=== PATIENT | male | born 1970 | race Caucasian/White ===

== ENCOUNTER 2021-09-19 09:23 | Inpatient (IN) | payer SELFPAY ==
[~2021-09-19] VITALS: Ht 182.8 cm; Wt 74.4 kg
[~2021-09-19 09:23] MED LIST: ATOR20TA66 PO; DULA0.75 SQ; EMPA25TA PO; INSN1U SQ; INSU100V31 SC
[2021-09-19] MEDS ORDERED: ONDANSETRON 4 MG/2 ML (SDV) Z0FRAN ONE (09:33)
[2021-09-19 09:41] LABS: BASOPHILS # (AUTO) 0.1 10^3/uL (0.0-0.1); BASOPHILS % (AUTO) 1 % (0-10); EOSINOPHILS % (AUTO) 0 % (0-10); HEMATOCRIT 45 % (40-54); HEMOGLOBIN 14.8 g/dL (13.3-17.7); LYMPHOCYTES # (AUTO) 1.1 10^3/uL (1.0-4.0); LYMPHOCYTES % (AUTO) 12 % (12-44); MEAN CORPUSCULAR HEMOGLOBIN 28 pg (25-34); MEAN CORPUSCULAR HGB CONC 33 g/dL (32-36); MEAN CORPUSCULAR VOLUME 85 fL (80-99); MEAN PLATELET VOLUME 10.1 fL (9.0-12.2); MONOCYTES # (AUTO) 0.6 10^3/uL (0.0-1.0); MONOCYTES % (AUTO) 6 % (0-12); NEUTROPHILS # (AUTO) 7.7 10^3/uL (1.8-7.8); NEUTROPHILS % (AUTO) 81 % (42-75); PLATELET COUNT 299 10^3/uL (130-400); WHITE BLOOD COUNT 9.5 10^3/uL (4.3-11.0)
[2021-09-19] MEDS ORDERED: PANTOPRAZOLE 40 MG (PROTONIX) VIAL IV ONE (09:45)
[2021-09-19] MEDS ORDERED: inSUlin (REGULAR) HUMAN 1 UNIT/0.01 ML (CHARGE PER UNIT) IV ONE (09:45)
[2021-09-19] MEDS ORDERED: fentaNYL INJ 100 MCG/2 ML AMP IVP ONE (09:45)
[2021-09-19] MEDS ORDERED: ONDANSETRON 4 MG/2 ML (SDV) Z0FRAN IVP ONE (09:45)
[2021-09-19 09:49] LABS: ALBUMIN 4.5 GM/DL (3.2-4.5); CHLORIDE 95 MMOL/L (98-107); POTASSIUM 5.2 MMOL/L (3.6-5.0); SODIUM 135 MMOL/L (135-145)
[2021-09-19 09:51] LABS: CALCIUM 9.9 MG/DL (8.5-10.1)
[2021-09-19 09:52] LABS: TOTAL PROTEIN 7.9 GM/DL (6.4-8.2)
[2021-09-19 09:53] LABS: CARBON DIOXIDE 10 MMOL/L (21-32)
[2021-09-19 09:54] LABS: BILIRUBIN,TOTAL 0.9 MG/DL (0.1-1.0)
[2021-09-19 09:56] LABS: ALKALINE PHOSPHATASE 126 U/L (40-136); CREATININE SERUM 1.73 MG/DL (0.60-1.30); GFR ESTIMATED 47; GLUCOSE 525 MG/DL (70-105)
[2021-09-19 09:57] LABS: BUN/CREATININE RATIO 14
[2021-09-19 09:58] LABS: SALICYLATE < 5.0 MG/DL (5.0-20.0)
[2021-09-19 09:59] LABS: ALANINE AMINOTRANSFERASE 50 U/L (0-55); MAGNESIUM 2.2 MG/DL (1.6-2.4)
[2021-09-19 10:01] LABS: LIPASE 7 U/L (8-78)
[2021-09-19 10:18] LABS: ACETAMINOPHEN < 10 UG/ML (10-30)
[2021-09-19] MEDS ORDERED: NS IV 1000 ML 1,000 ML IV SCH ×2 (11:00→13:15)
--- NOTE | 2021-09-19 11:29 | ED General ---
General Chief Complaint: Glucose Problems Stated Complaint: HIGH BLOOD SUGAR Nursing Triage Note: PT TO ED PER EMS FROM LOCAL [facility] W/ C/O ELEVATED BLOOD SUGAR, N/V. PT REPORTS HAS NOT TAKEN INSULIN SINCE "MONDAY". WHEN ASKED WHY, PT REPORTS "THAT WAS THE LAST TIME I WAS SOBER." PT ADMITS TO MARIJUANA ET METHAMPHETAMINE USE. ALSO REPORTS DRINKS ETOH "WHEN HE GOES OUT". NO OTHER C/O VOICED. Source of Information: Patient, EMS, Old Records Exam Limitations: No Limitations History of Present Illness Date Seen by Provider: Sep 19, 2021 Time Seen by Provider: 09:24 Initial Comments This 51-year-old man presents to the emergency room with nausea, vomiting, epigastric discomfort, and hyperglycemia. Blood sugar for EMS was 416 with positive ketones. He had an admission for DKA in June. He admits to not using any insulin in about 48 hours. He has been recently using methamphetamines and marijuana. He also admits to drinking alcohol approximately 4 beers per night on average. He is alert and oriented but actively heaving on arrival. Patient states his diabetes is type II, but he has been in DKA previously. His primary care provider is [place] at [facility]. Allergies and Home Medications Allergies Coded Allergies: No Known Drug Allergies (Unverified , 07/24/21) Patient Home Medication List Home Medication List Reviewed: Yes Atorvastatin Calcium (Atorvastatin Calcium) 20 Mg Tablet, 20 MG PO DAILY, (Reported) Entered as Reported by: SKYLER BROOKS on 07/28/21 1040 Insulin NPH Human Isophane (Novolin N) 100 Unit/Ml Vial, 30 UNIT SQ DAILY Prescribed by: JEAN MARIE WHITMORE on 07/28/21 1104 Insulin NPH Human Isophane (Novolin N) 100 Unit/Ml Vial, 20 UNIT SQ HS Prescribed by: JEAN MARIE WHITMORE on 07/28/21 1104 Insulin Regular, Human (Novolin R) 100 Unit/Ml Vial, 6 UNIT SC AC Prescribed by: JEAN MARIE WHITMORE on 07/28/21 1104 Review of Systems Review of Systems Constitutional: no symptoms reported EENTM: no symptoms reported Respiratory: no symptoms reported Cardiovascular: no symptoms reported Gastrointestinal: see HPI Genitourinary: no symptoms reported Musculoskeletal: no symptoms reported Skin: no symptoms reported Psychiatric/Neurological: See HPI Hematologic/Lymphatic: No Symptoms Reported Immunological/Allergic: no symptoms reported Past Pakdpnu-Jqcyff-Fhwnoi Hx Patient Social History Tobacco Use?: No Smokeless Tobacco Frequency: Current Everyday User Use of E-Cig and/or Vaping dev: Yes Use of E-Cig and/or Vaping Manas: Current Everyday User Substance use?: Yes Substance type: Methamphetamine, Marijuana Alcohol Use?: Yes Alcohol type: Beer Alcohol Frequency: Daily Immunizations Up To Date First/Initial COVID19 Vaccinat: FEBRUARY 2021 Second COVID19 Vaccination Angel: MAY 2021 Past Medical History Surgery/Hospitalization HX: DIABETIC Surgeries: No Respiratory: No Cardiac: No Neurological: No Genitourinary: No Gastrointestinal: No Musculoskeletal: No Endocrine: Yes Diabetes, Insulin dep HEENT: No Cancer: No Psychosocial: Yes (Polysubstance abuse) Integumentary: No Physical Exam Vital Signs Vital Signs - First Documented 09/19/21 09:26 Temp 36.6 Pulse 112 Resp 20 B/P (MAP) 145/95 (112) Pulse Ox 100 O2 Delivery Room Air Capillary Refill : Less Than 3 Seconds Height, Weight, BMI Height: '" Weight: lbs. oz. kg; 23.00 BMI Method: General Appearance: WD/WN, Mild Distress, Thin HEENT: PERRL/EOMI, TMs Normal, Normal ENT Inspection, Other (Oropharynx somewhat dry) Neck: Normal Inspection; No JVD Respiratory: Lungs Clear, Normal Breath Sounds, No Accessory Muscle Use, No Respiratory Distress Cardiovascular: No Edema, No Murmur, Tachycardia Gastrointestinal: Normal Bowel Sounds, Soft; No Distended; Tenderness (Epigastrium) Extremity: Normal Inspection, No Pedal Edema Neurologic/Psychiatric: Alert, Oriented x3, No Motor/Sensory Deficits, Normal Mood/Affect, public opinion survey taker II-XII Norm as Tested, Other (Dystonic movements consistent with influence of methamphetamines) Skin: Normal Color, Warm/Dry Progress/Results/Core Measures Suspected Sepsis SIRS Temperature: Pulse: 112 Respiratory Rate: 20 Laboratory Tests 09/19/21 09:29: White Blood Count 9.5 Blood Pressure 145 /95 Mean: 112 Laboratory Tests 09/19/21 09:29: Creatinine 1.73H, Platelet Count 299, Total Bilirubin 0.9 Results/Orders Lab Results Laboratory Tests Test 09/19/21 09:29 09/19/21 09:32 Range/Units White Blood Count 9.5 4.3-11.0 10^3/uL Red Blood Count 5.35 4.30-5.52 10^6/uL Hemoglobin 14.8 13.3-17.7 g/dL Hematocrit 45 40-54 % Mean Corpuscular Volume 85 80-99 fL Mean Corpuscular Hemoglobin 28 25-34 pg Mean Corpuscular Hemoglobin Concent 33 32-36 g/dL Red Cell Distribution Width 13.6 10.0-14.5 % Platelet Count 299 130-400 10^3/uL Mean Platelet Volume 10.1 9.0-12.2 fL Immature Granulocyte % (Auto) 0 % Neutrophils (%) (Auto) 81 H 42-75 % Lymphocytes (%) (Auto) 12 12-44 % Monocytes (%) (Auto) 6 0-12 % Eosinophils (%) (Auto) 0 0-10 % Basophils (%) (Auto) 1 0-10 % Neutrophils # (Auto) 7.7 1.8-7.8 10^3/uL Lymphocytes # (Auto) 1.1 1.0-4.0 10^3/uL Monocytes # (Auto) 0.6 0.0-1.0 10^3/uL Eosinophils # (Auto) 0.0 0.0-0.3 10^3/uL Basophils # (Auto) 0.1 0.0-0.1 10^3/uL Immature Granulocyte # (Auto) 0.0 0.0-0.1 10^3/uL Sodium Level 135 135-145 MMOL/L Potassium Level 5.2 H 3.6-5.0 MMOL/L Chloride Level 95 L 98-107 MMOL/L Carbon Dioxide Level 10 L 21-32 MMOL/L Anion Gap 30 H 5-14 MMOL/L Blood Urea Nitrogen 25 H 7-18 MG/DL Creatinine 1.73 H 0.60-1.30 MG/DL Estimat Glomerular Filtration Rate 47 BUN/Creatinine Ratio 14 Glucose Level 525 *H 70-105 MG/DL Calcium Level 9.9 8.5-10.1 MG/DL Corrected Calcium 9.5 8.5-10.1 MG/DL Magnesium Level 2.2 1.6-2.4 MG/DL Total Bilirubin 0.9 0.1-1.0 MG/DL Aspartate Amino Transf (AST/SGOT) 42 H 5-34 U/L Alanine Aminotransferase (ALT/SGPT) 50 0-55 U/L Alkaline Phosphatase 126 40-136 U/L Total Protein 7.9 6.4-8.2 GM/DL Albumin 4.5 3.2-4.5 GM/DL Lipase 7 L 8-78 U/L Salicylates Level < 5.0 L 5.0-20.0 MG/DL Acetaminophen Level < 10 L 10-30 UG/ML Serum Alcohol < 10 <10 MG/DL Glucometer 494 *H 70-110 MG/DL My Orders Orders - KODY RANDHAWA MD Ondansetron Injection (Zofran Injectio (09/19/21 09:45) Pantoprazole Injection (Protonix Injecti (09/19/21 09:45) Insulin (Regular) Human (Novolin R (Per (09/19/21 09:45) Ondansetron Injection (Zofran Injectio (09/19/21 09:33) Acetaminophen (09/19/21 09:36) Alcohol (09/19/21 09:36) Cbc With Automated Diff (09/19/21 09:36) Comprehensive Metabolic Panel (09/19/21 09:36) Drug Screen Stat (Urine) (09/19/21 09:36) Lipase (09/19/21 09:36) Magnesium (09/19/21 09:36) Salicylate (09/19/21 09:36) Ua Culture If Indicated (09/19/21 09:36) Monitor-Rhythm Ecg Trace Only (09/19/21 09:36) Fentanyl Inj (Sublimaze Injection) (09/19/21 09:45) Ns Iv 1000 Ml (Sodium Chloride 0.9%) (09/19/21 11:00) Accucheck Stat ONCE (09/19/21 10:51) Code/Resuscitation (09/19/21 11:42) Medications Given in ED Current Medications Medications Dose Ordered Sig/Carlos Route Start Time Stop Time Status Last Admin Dose Admin Fentanyl Citrate 50 mcg ONCE ONCE IVP 09/19/21 09:45 09/19/21 09:46 DC 09/19/21 09:43 50 MCG Insulin Human Regular 5 unit ONCE ONCE IV 09/19/21 09:45 09/19/21 09:46 DC 09/19/21 09:43 5 UNIT Ondansetron HCl 8 mg ONCE ONCE IVP 09/19/21 09:45 09/19/21 09:46 DC 09/19/21 09:36 8 MG Pantoprazole 40 mg ONCE ONCE IV 09/19/21 09:45 09/19/21 09:46 DC 09/19/21 09:44 40 MG Vital Signs/I&O 09/19/21 09:26 Temp 36.6 Pulse 112 Resp 20 B/P (MAP) 145/95 (112) Pulse Ox 100 O2 Delivery Room Air Capillary Refill : Less Than 3 Seconds Blood Pressure Mean: 112 Progress Note #1: Time: 11:45 Progress Note Patient received 2 L of IV normal saline. 5 units of IV insulin was also administered with improvement in his blood sugars. GI symptoms were treated with Zofran 8 mg and Protonix 40 mg. Patient had good improvement in his symptoms and was resting peacefully on repeat assessment. I discussed CODE STATUS with the patient twice and reviewed scenarios in which resuscitation or intubation may be necessary. During both discussions he asserts a DO NOT RESUSCITATE request. Progress Note #2: Time: 11:58 Progress Note Report given to eICU provider. Report given to Dr. Whitmore who has cued orders. Departure Communication (Admissions) Time/Spoke to Admitting Phy: 11:42 Dr. Whitmore Impression Primary Impression: Diabetic ketoacidosis Qualified Codes: E11.10 - Type 2 diabetes mellitus with ketoacidosis without coma Additional Impressions: Polysubstance abuse Acute kidney injury Nausea & vomiting Qualified Codes: R11.2 - Nausea with vomiting, unspecified Disposition: ADMITTED INPATIENT Condition: Improved Admissions Decision to Admit Reason: Admit from ER (General) Decision to Admit/Date: Sep 19, 2021 Time/Decision to Admit Time: 11:42 Departure-Patient Inst. Referrals: [facility] (PCP/Family) Primary Care Physician KODY RANDHAWA MD Sep 19, 2021 11:29
--- NOTE | 2021-09-19 11:56 | History & Physical-Hospitalist ---
History of Present Illness HPI/Chief Complaint CC: DKA HPI: This is a 51yo male who presented to the ER with N/V and found to have DKA. No pain reported. Source: patient, old records Exam Limitations: no limitations Date Seen 09/19/21 Time Seen by a Provider: 12:30 [facility] Admitting Physician: Attending Physician: Referring Physician Date of Admission Home Medications & Allergies Home Medications Reviewed patient Home Medication Reconciliation performed by pharmacy medication reconciliations preparatory technician and/or nursing. Patients Allergies have been reviewed. Allergies Allergies Coded Allergies No Known Drug Allergies (Unverified07/24/21) Past Gognawx-Majatc-Daesyu Hx Patient Social History Marrital Status: single Employed/Student: unemployed Tobacco Use?: No Smokeless type used: Chew Smokeless Tobacco Frequency: Current Everyday User Use of E-Cig and/or Vaping dev: Yes Use of E-Cig and/or Vaping Manas: Current Everyday User Substance use?: Yes Substance type: Methamphetamine, Marijuana Alcohol Use?: Yes Alcohol type: Beer Alcohol Frequency: Daily Immunizations Up To Date First/Initial COVID19 Vaccinat: FEBRUARY 2021 Second COVID19 Vaccination Angel: MAY 2021 Current Status Advance Directives: No Communicates: Verbally Primary Language: Thai Preferred Spoken Language: Thai Is interpretation needed?: No Past Medical History Diabetes, Insulin dep Review of Systems Constitutional: see HPI, malaise, weakness Gastrointestinal: nausea, vomiting Physical Exam Physical Exam Vital Signs Vital Signs - First Documented 09/19/21 09:26 Temp 36.6 Pulse 112 Resp 20 B/P (MAP) 145/95 (112) Pulse Ox 100 O2 Delivery Room Air Capillary Refill : Less Than 3 Seconds Height, Weight, BMI Height: '" Weight: lbs. oz. kg; 23.00 BMI Method: General Appearance: Anxious, Mild Distress Eyes: Right Eye Normal Inspection, Right Eye PERRL HEENT: PERRL/EOMI, TMs Normal, Normal ENT Inspection, Pharynx Normal, Moist Mucous Membranes Neck: Full Range of Motion, Normal Inspection, Non Tender Respiratory: Chest Non Tender, Lungs Clear, Normal Breath Sounds, No Accessory Muscle Use, No Respiratory Distress Cardiovascular: Regular Rate, Rhythm, No Edema, No Gallop, No JVD, No Murmur, Normal Peripheral Pulses Gastrointestinal: Normal Bowel Sounds, No Organomegaly, No Pulsatile Mass, Non Tender, Soft Back: Normal Inspection, No CVA Tenderness, No Vertebral Tenderness Extremity: Normal Capillary Refill, Normal Inspection, Normal Range of Motion, Non Tender, No Calf Tenderness, No Pedal Edema Neurologic/Psychiatric: Alert, Oriented x3, No Motor/Sensory Deficits, Normal Mood/Affect Skin: Normal Color, Warm/Dry Lymphatic: No Adenopathy Results Results/Procedures Labs Laboratory Tests 09/19/21 09:29 09/19/21 14:29 09/19/21 16:42 Patient resulted labs reviewed. Assessment/Plan Admission Diagnosis DKA BRYON Insulin drip Admission Status: Inpatient Order (span 2 midnights) Reason for Inpatient Admission: dka Diagnosis/Problems Diagnosis/Problems (1) Diabetic ketoacidosis Status: Acute Qualifiers: Diabetes mellitus type: type 2 Diabetes mellitus complication detail: without coma Qualified Codes: E11.10 - Type 2 diabetes mellitus with ketoacidosis without coma JEAN MARIE WHITMORE DO Sep 19, 2021 11:56
[2021-09-19] MEDS ORDERED: DIAZEPAM INJ 10 MG/2 ML (VALIUM) SYR IVP PRN (13:15)
[2021-09-19] MEDS ORDERED: diphenhydrAMINE 50 MG/ML INJ (BENADRYL) IVP PRN (13:15)
[2021-09-19] MEDS ORDERED: ONDANSETRON 4 MG (ZOFRAN) ORAL DISSOLVE TAB PO PRN (13:15)
[2021-09-19] MEDS ORDERED: diphenhydrAMINE 25 MG TAB (BENADRYL) PO PRN (13:15)
[2021-09-19] MEDS ORDERED: LORazepam 1 MG (ATIVAN) TAB PO PRN (13:15)
[2021-09-19] MEDS ORDERED: morphine INJ 4 MG/ML 1 ML (VIAL/SYRINGE) IV PRN (13:15)
[2021-09-19] MEDS ORDERED: MILK OF MAGNESIA 400 MG/5 ML 30 ML UDC PO PRN (13:15)
[2021-09-19] MEDS ORDERED: ONDANSETRON 4 MG (ZOFRAN) ORAL DISSOLVE TAB SL PRN (13:15)
[2021-09-19] MEDS ORDERED: MELATONIN 3 MG TABLET PO PRN (13:15)
[2021-09-19] MEDS ORDERED: ANTACID SUSP 30 ML UDC (MYLANTA) PO PRN ×2 (13:15)
[2021-09-19] MEDS ORDERED: ACETAMINOPHEN 325 MG TABLET PO PRN (13:15)
[2021-09-19] MEDS ORDERED: polyethylene glycoL POWDER 17 GM (MIRALAX) PACK PO PRN (13:15)
[2021-09-19] MEDS ORDERED: ALPRAZolam 0.5 MG (XANAX) TAB PO PRN (13:15)
[2021-09-19] MEDS ORDERED: SENNA W/DOCUSATE (SENOKOT S) TABLET PO PRN (13:15)
[2021-09-19] MEDS ORDERED: CALCIUM CARBONATE 500 MG (TUMS) TAB.CHEW PO PRN (13:15)
[2021-09-19] MEDS ORDERED: BISACODYL 10 MG SUPP (DULCOLAX) PR PRN (13:15)
[2021-09-19] MEDS ORDERED: LACTULOSE SYRUP 10GM/15ML (ENULOSE) 30ML UDC PO PRN (13:15)
[2021-09-19] MEDS ORDERED: ONDANSETRON 4 MG/2 ML (SDV) Z0FRAN IV PRN ×2 (13:15)
[2021-09-19 13:38] VITALS: BP 145/95
[2021-09-19] MEDS ORDERED: RT-ALBUTEROL SULF 2.5 MG/3 ML PRE-MIX VIAL INH PRN (13:45)
[2021-09-19] MEDS: 1/2 NS IV SOLUTION 1,000 ML IV SCH ×3 (13:49→19:46)
[2021-09-19] MEDS: POTASSIUM CL 10MEQ/50ML IVPB 50 ML IV SCH ×9 (13:49→22:27)
[2021-09-19] MEDS: ENOXAPARIN 40 MG/0.4 ML (LOVENOX) SYR SC SCH (14:16)
--- NOTE | 2021-09-19 14:18 | Tele-ICU Progress Note ---
Subjective Date Seen by a Provider: Sep 19, 2021 Time Seen by a Provider: 14:18 Subjective/Events-last exam Discussion with the RN, exam as per RN. HPI He is a 51-year-old male with past medical history of type 2 diabetes mellitus on insulin has been noncompliant with his insulin. Also apparently he was using methamphetamine and marijuana until recently. Now presented with the nausea vomiting abdominal pain and patient noted that he has a hyperglycemia. In the emergency room he is found to have a diabetic ketoacidosis with hyperglycemia. Also his BUN/creatinine elevated suggestive of acute kidney injury. Hence he is being admitted to the ICU for close monitoring and management of his DKA. I have reviewed the case with emergency room physician as well as the intensive care nurse. Currently he denies any abdominal pain after initial treatment. He has some mild nausea. Denies any fever or chills chills, no chest pain. No telemetry ICU consult requested but evaluating the patient for telemetry ICU pro tocol. Review of Systems ROS PER RN Sepsis Event Evaluation Height, Weight, BMI Height: '" Weight: lbs. oz. kg; 21.69 BMI Method: Exam Exam Patient acknowledged, consented, and participated in this virtual visit which was conducted using real time audio/video Vital Signs Date Time Temp Pulse Resp B/P (MAP) Pulse Ox O2 Delivery O2 Flow Rate FiO2 09/19/21 14:00 101 22 131/93 100 Room Air 09/19/21 13:38 36.6 112 100 09/19/21 09:26 36.6 112 20 145/95 (112) 100 Room Air Height & Weight Height: '" Weight: lbs. oz. kg; 21.69 BMI Method: General Appearance: WD/WN, Mild Distress, Thin HEENT: PERRL/EOMI, TMs Normal, Normal ENT Inspection, Other (Oropharynx somewhat dry) Neck: Normal Inspection; No JVD Respiratory: Lungs Clear, Normal Breath Sounds, No Accessory Muscle Use, No Respiratory Distress Cardiovascular: No Edema, No Murmur, Tachycardia Capillary Refill: Less Than 3 Seconds Extremity: Normal Inspection, No Pedal Edema Neurologic/Psychiatric: Alert, Oriented x3, No Motor/Sensory Deficits, Normal Mood/Affect, eating disorder psychologist II-XII Norm as Tested, Other (Dystonic movements consistent with influence of methamphetamines) Skin: Normal Color, Warm/Dry Other comments PE PER RN Results Lab Laboratory Tests 09/19/21 09:29 Assessment/Plan Assessment/Plan 1. Diabetic ketoacidosis due to noncompliance of the medications. 2. Acute kidney injury due to volume loss 3. History of marijuana and methamphetamine abuse. Recommendations 1. Hydrate patient per DKA protocol 2. Agree with IV insulin. 3. Frequent monitoring of electrolytes, magnesium and phosphate. 4. Zofran for nausea and vomiting 5. DVT prophylaxis and ulcer prophylaxis. 6. Video visit made and discussed with the patient and ICU nurse Critical Care: Critically Ill Patient Time spent with patient (mins): 25 DYLLAN JORDAN MD Sep 19, 2021 14:18
[2021-09-19 15:09] LABS: CALCIUM 8.7 MG/DL (8.5-10.1); CREATININE SERUM 1.35 MG/DL (0.60-1.30); MAGNESIUM 1.9 MG/DL (1.6-2.4); PHOSPHORUS 3.3 MG/DL (2.3-4.7); POTASSIUM 4.7 MMOL/L (3.6-5.0)
[2021-09-19 15:16] LABS: BILIRUBIN,URINE NEGATIVE (NEGATIVE); CLARITY,URINE CLEAR; COLOR,URINE YELLOW; GLUCOSE, URINE (UA) 2+ (NEGATIVE); KETONES,URINE 3+ (NEGATIVE); LEUKOCYTE ESTERASE ,URINE NEGATIVE (NEGATIVE); NITRITE,URINE NEGATIVE (NEGATIVE); PROTEIN,URINE NEGATIVE (NEGATIVE)
[2021-09-19 15:27] LABS: AMPHETAMINE SCREEN, URINE POSITIVE (NEGATIVE); BACTERIA,URINE NEGATIVE /HPF; BARBITURATE SCREEN URINE NEGATIVE (NEGATIVE); BENZODIAZEPINES SCREEN URINE NEGATIVE (NEGATIVE); CANNABINOID SCREEN, URINE POSITIVE (NEGATIVE); COCAINE SCREEN URINE NEGATIVE (NEGATIVE); METHADONE STAT NEGATIVE (NEGATIVE); OPIATE SCREEN URINE NEGATIVE (NEGATIVE); OXYCODONE STAT NEGATIVE (NEGATIVE); PROPOXYPHENE STAT NEGATIVE (NEGATIVE); TRICYCLIC ANTIDEPRESSANTS SCRE NEGATIVE (NEGATIVE); WBC,URINE 0-2 /HPF
[2021-09-19] MEDS ORDERED: SODIUM BICARB 8.4% 50 MEQ/50 ML (ABBOTT) SYR IV ONE ×2 (15:30)
[2021-09-19 15:45] LABS: ABG BASE EXCESS -13.3 MMOL/L (-2.5-2.5); ABG OXYGEN SATURATION 99 % (94-100); ABG PCO2 24 MMHG (35-45); ABG PO2 132 MMHG (79-93); ABG TCO2 12.4 MMOL/L (21.0-31.0)
[2021-09-19 15:49] LABS: ABG PH 7.32 (7.37-7.43)
[2021-09-19 15:50] LABS: ALLENS TEST YES-POS; PATIENT TEMP 37.1; VENTILATOR NO
[2021-09-19 17:05] LABS: CALCIUM 8.1 MG/DL (8.5-10.1); CREATININE SERUM 1.17 MG/DL (0.60-1.30); POTASSIUM 4.3 MMOL/L (3.6-5.0)
[2021-09-19] MEDS: D5 1/2 NS 1000 ML IV SOLUTION 1,000 ML IV SCH ×2 (18:05→22:27)
[2021-09-19] MEDS: DOCUSATE SODIUM 100 MG (COLACE) CAP PO SCH (19:46)
[2021-09-19] MEDS: SENNOSIDES 8.6 MG (SENOKOT) TAB PO SCH (19:46)
[2021-09-19] MEDS: FAMOTIDINE 20MG/2ML IV (PEPCID) IVP SCH (19:46)
[2021-09-19 21:13] LABS: CALCIUM 7.8 MG/DL (8.5-10.1)
[2021-09-19 21:17] LABS: CREATININE SERUM 0.96 MG/DL (0.60-1.30)
[2021-09-20 05:39] LABS: BASOPHILS # (AUTO) 0.1 10^3/uL (0.0-0.1); BASOPHILS % (AUTO) 1 % (0-10); EOSINOPHILS # (AUTO) 0.2 10^3/uL (0.0-0.3); EOSINOPHILS % (AUTO) 3 % (0-10); HEMATOCRIT 38 % (40-54); HEMOGLOBIN 12.6 g/dL (13.3-17.7); LYMPHOCYTES # (AUTO) 2.7 10^3/uL (1.0-4.0); LYMPHOCYTES % (AUTO) 32 % (12-44); MEAN CORPUSCULAR HEMOGLOBIN 28 pg (25-34); MEAN CORPUSCULAR HGB CONC 33 g/dL (32-36); MEAN CORPUSCULAR VOLUME 85 fL (80-99); MEAN PLATELET VOLUME 9.9 fL (9.0-12.2); MONOCYTES # (AUTO) 0.6 10^3/uL (0.0-1.0); MONOCYTES % (AUTO) 7 % (0-12); NEUTROPHILS # (AUTO) 4.8 10^3/uL (1.8-7.8); NEUTROPHILS % (AUTO) 58 % (42-75); PLATELET COUNT 235 10^3/uL (130-400); WHITE BLOOD COUNT 8.3 10^3/uL (4.3-11.0)
[2021-09-20 06:08] LABS: ALBUMIN 3.2 GM/DL (3.2-4.5); POTASSIUM 4.2 MMOL/L (3.6-5.0)
[2021-09-20 06:09] LABS: CALCIUM 8.1 MG/DL (8.5-10.1)
[2021-09-20 06:10] LABS: TOTAL PROTEIN 5.6 GM/DL (6.4-8.2)
[2021-09-20 06:12] LABS: BILIRUBIN,TOTAL 0.8 MG/DL (0.1-1.0)
[2021-09-20 06:14] LABS: CREATININE SERUM 0.79 MG/DL (0.60-1.30); PHOSPHORUS 1.9 MG/DL (2.3-4.7)
--- NOTE | 2021-09-20 06:14 | Progress Note - Hospitalist ---
Subjective HPI/CC On Admission Date Seen by Provider: Sep 20, 2021 Time Seen by Provider: 09:00 CC: DKA HPI: This is a 51yo male who presented to the ER with N/V and found to have DKA. No pain reported. Subjective/Events-last exam Patient doing a lot better Bicarb 16 Not eating or drinking anything No pain is reported Sleeps most of the time Review of Systems General: Fatigue, Malaise Objective Exam Vital Signs Vital Signs Date Time Temp Pulse Resp B/P (MAP) Pulse Ox O2 Delivery O2 Flow Rate FiO2 09/20/21 20:00 36.2 09/20/21 18:13 76 21 169/97 100 Room Air Capillary Refill : Less Than 3 Seconds General Appearance: No Apparent Distress, WD/WN, Chronically ill, Thin Respiratory: Lungs Clear, Normal Breath Sounds Cardiovascular: Regular Rate, Rhythm Neurologic/Psychiatric: Alert, Oriented x3, No Motor/Sensory Deficits, Normal Mood/Affect Results/Procedures Lab Laboratory Tests 09/20/21 05:04 09/20/21 13:15 09/20/21 16:25 09/20/21 18:15 Patient resulted labs reviewed. Assessment/Plan Assessment and Plan Assess & Plan/Chief Complaint Assessment: DKA BRYON Plan: Insulin drip Critical Care Critically Ill Patient Diagnosis/Problems Diagnosis/Problems (1) Diabetic ketoacidosis Status: Acute Qualifiers: Diabetes mellitus type: type 2 Diabetes mellitus complication detail: without coma Qualified Codes: E11.10 - Type 2 diabetes mellitus with ket oacidosis without coma JEAN MARIE WHITMORE DO Sep 20, 2021 06:14
[2021-09-20 06:17] LABS: MAGNESIUM 1.9 MG/DL (1.6-2.4)
[2021-09-20] MEDS: inSUlin ASPART (NovoLOG) 1 UNIT/0.01 ML (CHARGE PER UNIT) SC SCH ×4 (06:26→19:37)
[2021-09-20] MEDS ORDERED: DEXTROSE 50% 50 ML (IMS) SYR IV ONE ×2 (06:45)
[2021-09-20] MEDS: DOCUSATE SODIUM 100 MG (COLACE) CAP PO SCH ×2 (07:37→19:38)
[2021-09-20] MEDS: SENNOSIDES 8.6 MG (SENOKOT) TAB PO SCH ×2 (07:37→19:39)
[2021-09-20] MEDS: FAMOTIDINE 20MG/2ML IV (PEPCID) IVP SCH ×2 (07:37→19:56)
[2021-09-20] MEDS ORDERED: HUM100VI15 SQ ×2 (12:40)
[2021-09-20] MEDS ORDERED: INSU100V31 SC (12:40)
[2021-09-20 13:53] LABS: POTASSIUM 4.2 MMOL/L (3.6-5.0)
[2021-09-20 13:54] LABS: CALCIUM 8.3 MG/DL (8.5-10.1)
[2021-09-20 13:58] LABS: CREATININE SERUM 0.8 MG/DL (0.60-1.30)
[2021-09-20] MEDS: ENOXAPARIN 40 MG/0.4 ML (LOVENOX) SYR SC SCH (15:00)
[2021-09-20] MEDS ORDERED: NS IV 1000 ML 1,000 ML IV SCH (16:45)
[2021-09-20 16:51] LABS: POTASSIUM 4.4 MMOL/L (3.6-5.0)
[2021-09-20 16:52] LABS: CALCIUM 8.3 MG/DL (8.5-10.1)
[2021-09-20 16:57] LABS: CREATININE SERUM 0.91 MG/DL (0.60-1.30)
[2021-09-20 18:36] LABS: POTASSIUM 4.3 MMOL/L (3.6-5.0)
[2021-09-20 18:37] LABS: CALCIUM 8.4 MG/DL (8.5-10.1)
[2021-09-20 18:41] LABS: CREATININE SERUM 0.99 MG/DL (0.60-1.30)
[2021-09-20] MEDS: 1/2 NS IV SOLUTION 1,000 ML IV SCH (20:33)
[2021-09-20] MEDS: D5 1/2 NS 1000 ML IV SOLUTION 1,000 ML IV SCH (22:03)
[2021-09-20] MEDS: POTASSIUM CL 10MEQ/50ML IVPB 50 ML IV SCH ×2 (22:10→23:58)
[2021-09-21 00:52] LABS: POTASSIUM 3.8 MMOL/L (3.6-5.0)
[2021-09-21 00:53] LABS: CALCIUM 8.1 MG/DL (8.5-10.1)
[2021-09-21 00:57] LABS: CREATININE SERUM 0.77 MG/DL (0.60-1.30)
[2021-09-21] MEDS: D5 1/2 NS 1000 ML IV SOLUTION 1,000 ML IV SCH ×2 (02:23→06:23)
[2021-09-21] MEDS: POTASSIUM CL 10MEQ/50ML IVPB 50 ML IV SCH ×3 (02:23→06:22)
[2021-09-21] MEDS: inSUlin ASPART (NovoLOG) 1 UNIT/0.01 ML (CHARGE PER UNIT) SC SCH (05:03)
[2021-09-21 05:16] LABS: BASOPHILS % (AUTO) 0 % (0-10); EOSINOPHILS # (AUTO) 0.2 10^3/uL (0.0-0.3); EOSINOPHILS % (AUTO) 3 % (0-10); HEMATOCRIT 38 % (40-54); HEMOGLOBIN 12.6 g/dL (13.3-17.7); LYMPHOCYTES # (AUTO) 1.6 10^3/uL (1.0-4.0); LYMPHOCYTES % (AUTO) 31 % (12-44); MEAN CORPUSCULAR HEMOGLOBIN 28 pg (25-34); MEAN CORPUSCULAR HGB CONC 33 g/dL (32-36); MEAN CORPUSCULAR VOLUME 85 fL (80-99); MEAN PLATELET VOLUME 10.1 fL (9.0-12.2); MONOCYTES # (AUTO) 0.4 10^3/uL (0.0-1.0); MONOCYTES % (AUTO) 7 % (0-12); NEUTROPHILS % (AUTO) 58 % (42-75); PLATELET COUNT 188 10^3/uL (130-400); WHITE BLOOD COUNT 5.2 10^3/uL (4.3-11.0)
[2021-09-21 05:39] LABS: POTASSIUM 3.7 MMOL/L (3.6-5.0)
[2021-09-21 05:40] LABS: CALCIUM 8.2 MG/DL (8.5-10.1)
[2021-09-21 05:41] LABS: TOTAL PROTEIN 5.4 GM/DL (6.4-8.2)
[2021-09-21 05:43] LABS: BILIRUBIN,TOTAL 0.7 MG/DL (0.1-1.0)
[2021-09-21 05:45] LABS: CREATININE SERUM 0.72 MG/DL (0.60-1.30)
--- NOTE | 2021-09-21 06:03 | Progress Note - Hospitalist ---
Subjective HPI/CC On Admission Date Seen by Provider: Sep 21, 2021 Time Seen by Provider: 09:00 CC: DKA HPI: This is a 51yo male who presented to the ER with N/V and found to have DKA. No pain reported. Objective Exam Vital Signs Vital Signs Date Time Temp Pulse Resp B/P (MAP) Pulse Ox O2 Delivery O2 Flow Rate FiO2 09/21/21 10:00 74 20 136/77 96 Room Air 09/21/21 08:00 36.5 Capillary Refill : Less Than 3 Seconds Results/Procedures Lab Laboratory Tests 09/21/21 00:36 09/21/21 04:09 09/21/21 08:51 Patient resulted labs reviewed. Assessment/Plan Assessment and Plan Assess & Plan/Chief Complaint Assessment: DKA BRYON Plan: Insulin drip Critical Care Critically Ill Patient Diagnosis/Problems Diagnosis/Problems (1) Diabetic ketoacidosis Status: Acute Qualifiers: Diabetes mellitus type: type 2 Diabetes mellitus complication detail: without coma Qualified Codes: E11.10 - Type 2 diabetes mellitus with ketoacidosis without coma JEAN MARIE WHITMORE DO Sep 21, 2021 06:03
[2021-09-21] MEDS: FAMOTIDINE 20MG/2ML IV (PEPCID) IVP SCH (08:15)
[2021-09-21] MEDS: SENNOSIDES 8.6 MG (SENOKOT) TAB PO SCH (08:15)
[2021-09-21] MEDS: DOCUSATE SODIUM 100 MG (COLACE) CAP PO SCH (08:15)
--- NOTE | 2021-09-21 08:30 | Discharge Summary ---
Discharge Summary Hospital Course Was the Problem List Reviewed?: Yes Problems/Dx: (1) Diabetic ketoacidosis Status: Acute Qualifiers: Qualified Codes: E11.10 - Type 2 diabetes mellitus with ketoacidosis without coma Hospital Course Date of Admission: Sep 19, 2021 at 12:59 Admission Diagnosis : [facility] [place] Date of [facility]: 09/21/21 Discharge Diagnosis: dka bryon Hospital Course: Hospital course: Patient had uneventful 3-day hospital course after he was admitted for DKA placed on insulin drip but then he transition to subcu insulin but he went back into DKA requiring another insulin drip IV fluids and patient was ultimately discharged in improved condition he did not need refills on his insulin he was discharged. Labs and Pending Lab Test: Laboratory Tests 09/20/21 09:00: Glucometer 143H 09/20/21 11:06: Glucometer 151H 09/20/21 13:15: Sodium Level 136, Potassium Level 4.2, Chloride Level 106, Carbon Dioxide Level 18L, Anion Gap 12, Blood Urea Nitrogen 10, Creatinine 0.80, Estimat Glomerular Filtration Rate 107, BUN/Creatinine Ratio 13, Glucose Level 181H, Calcium Level 8.3L, Beta-Hydroxybutyrate (Chem panel) 4.13H 09/20/21 15:52: Glucometer 335H 09/20/21 16:25: Sodium Level 134L, Potassium Level 4.4, Chloride Level 103, Carbon Dioxide Level 18L, Anion Gap 13, Blood Urea Nitrogen 12, Creatinine 0.91, Estimat Glomerular Filtration Rate 102, BUN/Creatinine Ratio 13, Glucose Level 363H, Calcium Level 8.3L, Beta-Hydroxybutyrate (Chem panel) 4.37H 09/20/21 17:38: Glucometer 400*H 09/20/21 18:15: Sodium Level 134L, Potassium Level 4.3, Chloride Level 103, Carbon Dioxide Level 17L, Anion Gap 14, Blood Urea Nitrogen 13, Creatinine 0.99, Estimat Glomerular Filtration Rate 92, BUN/Creatinine Ratio 13, Glucose Level 395H, Calcium Level 8.4L 09/20/21 18:34: Glucometer 368H 09/20/21 19:32: Glucometer 365H 09/20/21 20:24: Glucometer 273H 09/20/21 21:31: Glucometer 214H 09/20/21 22:28: Glucometer 207H 09/20/21 23:22: Glucometer 213H 09/21/21 00:19: Glucometer 219H 09/21/21 00:36: Sodium Level 135, Potassium Level 3.8, Chloride Level 105, Carbon Dioxide Level 21, Anion Gap 9, Blood Urea Nitrogen 10, Creatinine 0.77, Estimat Glomerular Filtration Rate 108, BUN/Creatinine Ratio 13, Glucose Level 224H, Calcium Level 8.1L 09/21/21 01:26: Glucometer 210H 09/21/21 02:21: Glucometer 202H 09/21/21 03:25: Glucometer 181H 09/21/21 04:09: White Blood Count 5.2, Red Blood Count 4.51, Hemoglobin 12.6L, Hematocrit 38L, Mean Corpuscular Volume 85, Mean Corpuscular Hemoglobin 28, Mean Corpuscular Hemoglobin Concent 33, Red Cell Distribution Width 13.8, Platelet Count 188, Mean Platelet Volume 10.1, Immature Granulocyte % (Auto) 0, Neutrophils (%) (Auto) 58, Lymphocytes (%) (Auto) 31, Monocytes (%) (Auto) 7, Eosinophils (%) (Auto) 3, Basophils (%) (Auto) 0, Neutrophils # (Auto) 3.0, Lymphocytes # (Auto) 1.6, Monocytes # (Auto) 0.4, Eosinophils # (Auto) 0.2, Basophils # (Auto) 0.0, Immature Granulocyte # (Auto) 0.0, Sodium Level 137, Potassium Level 3.7, Chlori de Level 107, Carbon Dioxide Level 22, Anion Gap 8, Blood Urea Nitrogen 8, Creatinine 0.72, Estimat Glomerular Filtration Rate 111, BUN/Creatinine Ratio 11, Glucose Level 147H, Calcium Level 8.2L, Corrected Calcium 9.0, Total Bilirubin 0.7, Aspartate Amino Transf (AST/SGOT) 23, Alanine Aminotransferase (ALT/SGPT) 29, Alkaline Phosphatase 76, Total Protein 5.4L, Albumin 3.0L, Beta- Hydroxybutyrate (Chem panel) 0.08 09/21/21 04:21: Glucometer 173H 09/21/21 05:32: Glucometer 147H 09/21/21 06:27: Glucometer 140H Home Meds Active Reported Novolin R (Insulin Regular, Human) 100 Unit/Ml Vial Unit SC AC USES PER SLIDING SCALE Novolin 70-30 100 Unit/ml Vial (Insulin NPH Hum/Reg Insulin Hm) 100 Unit/Ml (70- 30) Vial 20 Unit SQ HS LAST FILLED 07-16-2021 #04/15 DAY SUPPLY Novolin 70-30 100 Unit/ml Vial (Insulin NPH Hum/Reg Insulin Hm) 100 Unit/Ml (70- 30) Vial 30 Unit SQ DAILY LAST FILLED 07-16-2021 #04/15 DAY SUPPLY Assessment/Pt Instructions pcp 1 week Discharge Planning: <30 minutes discharge planning Discharge Instructions Discharge Diet: ADA Diet Discharge Physical Examination Vital Signs Vital Signs Date Time Temp Pulse Resp B/P (MAP) Pulse Ox O2 Delivery O2 Flow Rate FiO2 09/21/21 07:36 Room Air 09/21/21 06:32 69 09/21/21 06:00 21 135/80 96 09/21/21 04:00 36.0 General Appearance: No Apparent Distress, WD/WN, Chronically ill Allergies: Coded Allergies: No Known Drug Allergies (Unverified , 07/24/21) Discharge Summary Date of Admission Sep 19, 2021 at 12:59 Date of Discharge Discharge Date: Sep 21, 2021 Admission Diagnosis DKA BRYON Insulin drip Discharge Diagnosis Assessment: DKA BRYON Plan: Insulin drip (1) Diabetic ketoacidosis Status: Acute Qualifiers: Qualified Codes: E11.10 - Type 2 diabetes mellitus with ketoacidosis without coma JEAN MARIE WHITMORE DO Sep 21, 2021 08:30
[2021-09-21 09:15] LABS: POTASSIUM 3.7 MMOL/L (3.6-5.0)
[2021-09-21 09:16] LABS: CALCIUM 8.3 MG/DL (8.5-10.1)
[2021-09-21 09:20] LABS: CREATININE SERUM 0.71 MG/DL (0.60-1.30)
== END 2021-09-21 11:11 | disposition home or self-care (01) | DRG 638 ==
LOC: EDUNIT# 09:23 → ER 09:24 → ICU 12:59
PROVIDERS: ADMIT Internal Medicine; ATTEND Internal Medicine
DX: E11.10 Type 2 diabetes mellitus with ketoacidosis without coma (principal); N17.9 Acute kidney failure, unspecified; Z79.4 Long term (current) use of insulin; F15.90 Other stimulant use, unspecified, uncomplicated; F12.90 Cannabis use, unspecified, uncomplicated; F17.220 Nicotine dependence, chewing tobacco, uncomplicated; F17.290 Nicotine dependence, other tobacco product, uncomplicated; T38.3X6A Underdosing of insulin and oral hypoglycemic [antidiabetic] drugs, initial encounter; Z91.128 Patient's intentional underdosing of medication regimen for other reason
CPT/HCPCS: 36415; 80048; 80053; 80306; 80320; 80329; 81000; 82010; 82805; 82947; 83036; 83690; 83735; 84100; 85025; 87081; 93041; 96361; 96374; 96375

== ENCOUNTER 2022-01-14 19:03 | Inpatient (IN) | payer OTHER ==
[~2022-01-14] VITALS: Ht 183 cm; Wt 66.9 kg
[~2022-01-14 19:03] MED LIST changes: +HUM100VI15 SQ
--- NOTE | 2022-01-14 19:27 | ED General ---
General Stated Complaint: HIGH BLOOD SUGAR/VOMITING Source of Information: Patient, Police Exam Limitations: No Limitations History of Present Illness Date Seen by Provider: Jan 14, 2022 Time Seen by Provider: 19:20 Initial Comments Patient is a 51 yo M with a PMH of IDDM who presents to the ED with nausea/vomiting and hyperglycemia. 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 Reportedly he has been refusing his insulin for the last 4 days. States he took a dose prior to coming to the ED. Glucose at the assisted was reportedly over 400. Patient states he also has some generalized abd pain. Has not been able to keep anything down today and been throwing up frequently. States he was last in DKA roughly 3 months ago. Allergies and Home Medications Allergies Coded Allergies: No Known Drug Allergies (Unverified , 07/24/21) Patient Home Medication List Home Medication List Reviewed: Yes Insulin NPH Hum/Reg Insulin Hm (Novolin 70-30 100 Unit/ml Vial) 100 Unit/Ml (70- 30) Vial, 30 UNIT SQ DAILY, (Reported) Entered as Reported by: SKYLER BROOKS on 09/20/21 1240 Insulin NPH Hum/Reg Insulin Hm (Novolin 70-30 100 Unit/ml Vial) 100 Unit/Ml (70- 30) Vial, 20 UNIT SQ HS, (Reported) Entered as Reported by: SKYLER BROOKS on 09/20/21 1240 Insulin Regular, Human (Novolin R) 100 Unit/Ml Vial, UNIT SC AC, (Reported) Entered as Reported by: SKYLER BROOKS on 09/20/21 1240 Review of Systems Review of Systems Constitutional: no symptoms reported EENTM: no symptoms reported Respiratory: no symptoms reported Cardiovascular: no symptoms reported Gastrointestinal: abdominal pain (generalized), nausea, vomiting Genitourinary: no symptoms reported Musculoskeletal: no symptoms reported Skin: no symptoms reported Psychiatric/Neurological: No Symptoms Reported Past Wxpbyvf-Zkhhjy-Iaqawb Hx Immunizations Up To Date First/Initial COVID19 Vaccinat: FEBRUARY 2021 Second COVID19 Vaccination Angel: MAY 2021 Past Medical History Surgery/Hospitalization HX: DIABETIC Surgeries: No Respiratory: No Cardiac: No Neurological: No Genitourinary: No Gastrointestinal: No Musculoskeletal: No Endocrine: Yes Diabetes, Insulin dep HEENT: No Cancer: No Psychosocial: Yes (Polysubstance abuse) Integumentary: No Physical Exam Vital Signs Vital Signs - First Documented 01/14/22 19:15 Temp 36.0 Pulse 95 Resp 18 B/P (MAP) 157/109 (125) Capillary Refill : Height, Weight, BMI Height: '" Weight: lbs. oz. kg; 21.69 BMI Method: General Appearance: No Apparent Distress, Other (dehydrated) HEENT: PERRL/EOMI, Normal ENT Inspection Neck: Full Range of Motion, Normal Inspection Respiratory: Chest Non Tender, Lungs Clear, Normal Breath Sounds, No Accessory Muscle Use, No Respiratory Distress Cardiovascular: Regular Rate, Rhythm, Normal Peripheral Pulses Gastrointestinal: Normal Bowel Sounds, Soft, Tenderness (diffuse) Back: Normal Inspection, No Vertebral Tenderness Extremity: Normal Capillary Refill Neurologic/Psychiatric: Alert, Oriented x3, No Motor/Sensory Deficits, Normal Mood/Affect, helper maintenance cleaning II-XII Norm as Tested Skin: Normal Color, Warm/Dry Progress/Results/Core Measures Suspected Sepsis SIRS Temperature: Pulse: Respiratory Rate: Laboratory Tests 01/14/22 19:28: White Blood Count 14.4H Blood Pressure / Mean: Laboratory Tests 01/14/22 19:28: Creatinine 1.49H, Platelet Count 277, Total Bilirubin 0.4 Results/Orders Lab Results Laboratory Tests Test 01/14/22 19:15 01/14/22 19:28 01/14/22 19:40 01/14/22 19:49 Range/Units Glucometer 486 *H 70-110 MG/DL White Blood Count 14.4 H 4.3-11.0 10^3/uL Red Blood Count 5.76 H 4.30-5.52 10^6/uL Hemoglobin 16.9 13.3-17.7 g/dL Hematocrit 52 40-54 % Mean Corpuscular Volume 90 80-99 fL Mean Corpuscular Hemoglobin 29 25-34 pg Mean Corpuscular Hemoglobin Concent 33 32-36 g/dL Red Cell Distribution Width 12.7 10.0-14.5 % Platelet Count 277 130-400 10^3/uL Mean Platelet Volume 10.1 9.0-12.2 fL Immature Granulocyte % (Auto) 0 % Neutrophils (%) (Auto) 88 H 42-75 % Lymphocytes (%) (Auto) 8 L 12-44 % Monocytes (%) (Auto) 4 0-12 % Eosinophils (%) (Auto) 0 0-10 % Basophils (%) (Auto) 0 0-10 % Neutrophils # (Auto) 12.6 H 1.8-7.8 10^3/uL Lymphocytes # (Auto) 1.2 1.0-4.0 10^3/uL Monocytes # (Auto) 0.5 0.0-1.0 10^3/uL Eosinophils # (Auto) 0.0 0.0-0.3 10^3/uL Basophils # (Auto) 0.1 0.0-0.1 10^3/uL Immature Granulocyte # (Auto) 0.1 0.0-0.1 10^3/uL Neutrophils % (Manual) 94 % Lymphocytes % (Manual) 3 % Monocytes % (Manual) 1 % Band Neutrophils 2 % Blood Morphology Comment NORMAL Sodium Level 135 135-145 MMOL/L Potassium Level 5.4 H 3.6-5.0 MMOL/L Chloride Level 101 98-107 MMOL/L Carbon Dioxide Level 11 L 21-32 MMOL/L Anion Gap 23 H 5-14 MMOL/L Blood Urea Nitrogen 21 H 7-18 MG/DL Creatinine 1.49 H 0.60-1.30 MG/DL Estimat Glomerular Filtration Rate 56 BUN/Creatinine Ratio 14 Glucose Level 531 *H 70-105 MG/DL Calcium Level 10.0 8.5-10.1 MG/DL Corrected Calcium 8.5-10.1 MG/DL Total Bilirubin 0.4 0.1-1.0 MG/DL Aspartate Amino Transf (AST/SGOT) 50 H 5-34 U/L Alanine Aminotransferase (ALT/SGPT) 95 H 0-55 U/L Alkaline Phosphatase 111 40-136 U/L Total Protein 8.5 H 6.4-8.2 GM/DL Albumin 4.8 H 3.2-4.5 GM/DL Beta-Hydroxybutyrate (Chem panel) 7.78 H 0.00-0.27 MMOL/L Urine Color YELLOW Urine Clarity CLEAR Urine pH 5.5 5-9 Urine Specific [place] >=1.030 1.016-1.022 Urine Protein NEGATIVE NEGATIVE Urine Glucose (UA) 2+ H NEGATIVE Urine Ketones 3+ H NEGATIVE Urine Nitrite NEGATIVE NEGATIVE Urine Bilirubin NEGATIVE NEGATIVE Urine Urobilinogen 0.2 < = 1.0 MG/DL Urine Leukocyte Esterase NEGATIVE NEGATIVE Urine RBC (Auto) NEGATIVE NEGATIVE Urine RBC NONE /HPF Urine WBC NONE /HPF Urine Squamous Epithelial Cells 0-2 /HPF Urine Crystals NONE /LPF Urine Bacteria NEGATIVE /HPF Urine Casts NONE /LPF Urine Mucus NEGATIVE /LPF Urine Culture Indicated NO Blood Gas Puncture Site LEFT RADIAL Blood Gas Patient Temperature 37.0 Arterial Blood pH 7.21 *L 7.37-7.43 Arterial Blood Partial Pressure CO2 27 L 35-45 MMHG Arterial Blood Partial Pressure O2 100 H 79-93 MMHG Arterial Blood HCO3 10 *L 23-27 MMOL/L Arterial Blood Total CO2 11.3 L 21.0-31.0 MMOL/L Arterial Blood Oxygen Saturation 98 94-100 % Arterial Blood Base Excess -16.0 L -2.5-2.5 MMOL/L Kavon Test YES-POS Blood Gas Ventilator Setting NO Blood Gas Inspired Oxygen ROOM AIR My Orders Orders - YENI TRIPATHI APRN Cbc With Automated Diff (01/14/22 19:17) Comprehensive Metabolic Panel (01/14/22 19:17) Arterial Blood Gas (01/14/22 19:17) Beta Hydroxybutyrate (01/14/22 19:17) Ed Iv/Invasive Line Start (01/14/22 19:17) Ondansetron Injection (Zofran Injectio (01/14/22 19:30) Ns Iv 1000 Ml (Sodium Chloride 0.9%) (01/14/22 19:30) Urinalysis (01/14/22 19:17) Manual Differential (01/14/22 19:28) Insulin (Regular) Human (Novolin R (Per (01/14/22 20:30) Insulin Regular Drip (Myxredlin 100 Unit (01/14/22 20:30) Ns Iv 1000 Ml (Sodium Chloride 0.9%) (01/14/22 20:30) Ed Admission (Communication) (01/14/22 20:42) Medications Given in ED Current Medications Medications Dose Ordered Sig/Carlos Route Start Time Stop Time Status Last Admin Dose Admin Insulin Human Regular 10 unit ONCE ONCE IV 01/14/22 20:30 01/14/22 20:31 DC 01/14/22 20:40 10 UNIT Ondansetron HCl 4 mg ONCE ONCE IVP 01/14/22 19:30 01/14/22 19:31 DC 01/14/22 19:31 4 MG Vital Signs/I&O 10/21/22 19:15 Temp 36.0 Pulse 95 Resp 18 B/P (MAP) 157/109 (125) Capillary Refill : Progress Note : Progress Note Patient is nontoxic on exam. He appears moderately dehydrated. No Kussmaul respirations appreciated. Vital signs reassuring. Laboratory evaluation notable for metabolic acidosis, hyperglycemia, and increased anion gap c/w DKA. Pt given 2L bolus of NS as well as 10 U regular insulin IV. Will admit to the ICU for further treatment. Hospitalist kindly agreed to admit. Patient updated on POC and understanding verbalized. Departure Communication (Admissions) Time/Spoke to Admitting Phy: 20:40 Impression Primary Impression: DKA (diabetic ketoacidosis) Qualified Codes: E10.10 - Type 1 diabetes mellitus with ketoacidosis without coma Disposition: ADMITTED INPATIENT Condition: Stable Admissions Decision to Admit Reason: Admit from ER (General) Decision to Admit/Date: Jan 14, 2022 Time/Decision to Admit Time: 20:35 Departure-Patient Inst. Referrals: [facility] (PCP/Family) Primary Care Physician YENI TRIPATHI APRN Jan 14, 2022 19:27
[2022-01-14] MEDS ORDERED: ONDANSETRON 4 MG/2 ML (SDV) Z0FRAN IVP ONE (19:30)
[2022-01-14] MEDS: NS IV 1000 ML 1,000 ML IV SCH ×2 (19:31→20:41)
[2022-01-14 19:34] LABS: BASOPHILS # (AUTO) 0.1 10^3/uL (0.0-0.1); BASOPHILS % (AUTO) 0 % (0-10); EOSINOPHILS % (AUTO) 0 % (0-10); HEMATOCRIT 52 % (40-54); HEMOGLOBIN 16.9 g/dL (13.3-17.7); LYMPHOCYTES # (AUTO) 1.2 10^3/uL (1.0-4.0); LYMPHOCYTES % (AUTO) 8 % (12-44); MEAN CORPUSCULAR HEMOGLOBIN 29 pg (25-34); MEAN CORPUSCULAR HGB CONC 33 g/dL (32-36); MEAN CORPUSCULAR VOLUME 90 fL (80-99); MEAN PLATELET VOLUME 10.1 fL (9.0-12.2); MONOCYTES # (AUTO) 0.5 10^3/uL (0.0-1.0); MONOCYTES % (AUTO) 4 % (0-12); NEUTROPHILS # (AUTO) 12.6 10^3/uL (1.8-7.8); NEUTROPHILS % (AUTO) 88 % (42-75); PLATELET COUNT 277 10^3/uL (130-400); WHITE BLOOD COUNT 14.4 10^3/uL (4.3-11.0)
[2022-01-14 19:45] LABS: BILIRUBIN,URINE NEGATIVE (NEGATIVE); CLARITY,URINE CLEAR; COLOR,URINE YELLOW; GLUCOSE, URINE (UA) 2+ (NEGATIVE); KETONES,URINE 3+ (NEGATIVE); LEUKOCYTE ESTERASE ,URINE NEGATIVE (NEGATIVE); NITRITE,URINE NEGATIVE (NEGATIVE); PH,URINE 5.5 (5-9); PROTEIN,URINE NEGATIVE (NEGATIVE)
[2022-01-14 19:54] LABS: ALBUMIN 4.8 GM/DL (3.2-4.5)
[2022-01-14 19:54] LABS: BACTERIA,URINE NEGATIVE /HPF; SQUAMOUS EPITHELIAL CELL,UR 0-2 /HPF
[2022-01-14 19:55] LABS: CHLORIDE 101 MMOL/L (98-107); POTASSIUM 5.4 MMOL/L (3.6-5.0); SODIUM 135 MMOL/L (135-145)
[2022-01-14 19:55] LABS: ABG OXYGEN SATURATION 98 % (94-100); ABG PCO2 27 MMHG (35-45); ABG PO2 100 MMHG (79-93); ABG TCO2 11.3 MMOL/L (21.0-31.0)
[2022-01-14 19:57] LABS: TOTAL PROTEIN 8.5 GM/DL (6.4-8.2)
[2022-01-14 19:58] LABS: CARBON DIOXIDE 11 MMOL/L (21-32)
[2022-01-14 19:59] LABS: BILIRUBIN,TOTAL 0.4 MG/DL (0.1-1.0)
[2022-01-14 20:00] LABS: ALKALINE PHOSPHATASE 111 U/L (40-136)
[2022-01-14 20:01] LABS: CREATININE SERUM 1.49 MG/DL (0.60-1.30); GFR ESTIMATED 56
[2022-01-14 20:02] LABS: BUN/CREATININE RATIO 14
[2022-01-14 20:03] LABS: ABG PH 7.21 (7.37-7.43); ALLENS TEST YES-POS; INSPIRED O2 ROOM AIR; VENTILATOR NO
[2022-01-14 20:04] LABS: ALANINE AMINOTRANSFERASE 95 U/L (0-55)
[2022-01-14 20:05] LABS: GLUCOSE 531 MG/DL (70-105)
[2022-01-14 20:06] LABS: BAND NEUTROPHILS 2 %; LYMPHOCYTES % (MANUAL) 3 %; MONOCYTES % (MANUAL) 1 %; NEUTROPHILS % (MANUAL) 94 %; RBC MORPH NORMAL
[2022-01-14] MEDS ORDERED: NS IV 1000 ML 1,000 ML IV SCH ×2 (20:30→21:30)
[2022-01-14] MEDS ORDERED: inSUlin (REGULAR) HUMAN 1 UNIT/0.01 ML (CHARGE PER UNIT) IV ONE (20:30)
[2022-01-14] MEDS ORDERED: polyethylene glycoL POWDER 17 GM (MIRALAX) PACK PO PRN (21:30)
[2022-01-14] MEDS ORDERED: ONDANSETRON 4 MG (ZOFRAN) ORAL DISSOLVE TAB PO PRN (21:30)
[2022-01-14] MEDS ORDERED: ONDANSETRON 4 MG/2 ML (SDV) Z0FRAN IV PRN (21:30)
[2022-01-14] MEDS ORDERED: ANTACID SUSP 30 ML UDC (MYLANTA) PO PRN (21:30)
[2022-01-14] MEDS ORDERED: morphine INJ 4 MG/ML 1 ML (VIAL/SYRINGE) IV PRN (21:30)
[2022-01-14] MEDS ORDERED: diphenhydrAMINE 25 MG TAB (BENADRYL) PO PRN (21:30)
[2022-01-14] MEDS ORDERED: ENOXAPARIN 40 MG/0.4 ML (LOVENOX) SYR SC SCH (21:30)
[2022-01-14] MEDS ORDERED: CALCIUM CARBONATE 500 MG (TUMS) TAB.CHEW PO PRN (21:30)
[2022-01-14] MEDS ORDERED: NS IV 500 ML 500 ML IV PRN (21:30)
[2022-01-14] MEDS ORDERED: ONDANSETRON 4 MG/2 ML (SDV) Z0FRAN IVP PRN (21:30)
[2022-01-14] MEDS ORDERED: POTASSIUM CL 10MEQ/50ML IVPB 50 ML IV SCH (21:30)
[2022-01-14] MEDS ORDERED: diphenhydrAMINE 50 MG/ML INJ (BENADRYL) IVP PRN (21:30)
[2022-01-14] MEDS ORDERED: BISACODYL 10 MG SUPP (DULCOLAX) PR PRN (21:30)
[2022-01-14] MEDS ORDERED: MELATONIN 3 MG TABLET PO PRN (21:30)
[2022-01-14] MEDS ORDERED: LORazepam 0.5 MG (ATIVAN) TABLET PO PRN (21:30)
[2022-01-14] MEDS ORDERED: ACETAMINOPHEN 325 MG TABLET PO PRN (21:30)
[2022-01-14] MEDS ORDERED: FAMOTIDINE 20MG/2ML IV (PEPCID) IVP ONE (21:30)
[2022-01-14] MEDS ORDERED: morphine IMMEDIATE RELEASE 15 MG TABLET PO PRN (21:30)
[2022-01-14] MEDS ORDERED: MILK OF MAGNESIA 400 MG/5 ML 30 ML UDC PO PRN (21:30)
[2022-01-14] MEDS ORDERED: LACTULOSE SYRUP 10GM/15ML (ENULOSE) 30ML UDC PO PRN (21:30)
[2022-01-14] MEDS ORDERED: cloNIDine 0.1 MG (CATAPRES) TAB PO PRN (21:30)
--- NOTE | 2022-01-14 21:33 | Tele-ICU Consult ---
Progress Note (Tele-ICU Physician, consultation) H&P is from ER notes Patient's information available about PMH, allergy reviewed in EMR. ROS as per chart and RN report Video assessment done using teleICU camera, rest of exam as per RN Consultants: N/A Hospital course: 51 yo M admitted via ED with DKA and nausea, vomiting. A/P DKA protocol already ordered per Dr. Albarran, orders and labs reviewed Antiemetics ordered Patient with emesis basin, dry heaves Pepcid x 1 due to shortage SCDs Lines: PIV Edward: N/A OG: N/A Nutrition: NPO Analgesia: N/A VTE Prophylaxis: SCD Stress Ulcer Prophylaxis: Pepcid Plans in collaboration with bedside consultants and Primary MD. RN to reach out if any questions or concerns 15 min of critical care time devoted to this patient today, required to treat and/or prevent further deterioration of critical care condition. CORY FONTANEZ MD Jan 14, 2022 21:33
[2022-01-14] MEDS ORDERED: ONDANSETRON 4 MG/2 ML (SDV) Z0FRAN ONE (21:37)
[2022-01-14 21:54] VITALS: BP 157/109
[2022-01-14] MEDS ORDERED: RT-ALBUTEROL/IPRATROPIUM 3 ML (DUONEB) VIAL INH PRN (22:30)
[2022-01-14 22:38] LABS: POTASSIUM 5.3 MMOL/L (3.6-5.0)
[2022-01-14 22:40] LABS: CALCIUM 9.2 MG/DL (8.5-10.1)
[2022-01-14 22:44] LABS: CREATININE SERUM 1.3 MG/DL (0.60-1.30)
[2022-01-14] MEDS: 1/2 NS IV SOLUTION 1,000 ML IV SCH (22:59)
[2022-01-14 23:47] LABS: POTASSIUM 5.2 MMOL/L (3.6-5.0)
[2022-01-14 23:48] LABS: CALCIUM 8.4 MG/DL (8.5-10.1)
[2022-01-14 23:52] LABS: CREATININE SERUM 1.14 MG/DL (0.60-1.30)
[2022-01-15] MEDS: POTASSIUM CL 10MEQ/50ML IVPB 50 ML IV SCH ×7 (00:12→12:27)
[2022-01-15] MEDS: D5 1/2 NS 1000 ML IV SOLUTION 1,000 ML IV SCH ×3 (02:12→09:39)
[2022-01-15] MEDS: 1/2 NS IV SOLUTION 1,000 ML IV SCH ×4 (02:15→13:27)
[2022-01-15 04:36] LABS: BASOPHILS % (AUTO) 0 % (0-10); EOSINOPHILS % (AUTO) 0 % (0-10); HEMATOCRIT 40 % (40-54); HEMOGLOBIN 13.5 g/dL (13.3-17.7); LYMPHOCYTES # (AUTO) 1.8 10^3/uL (1.0-4.0); LYMPHOCYTES % (AUTO) 17 % (12-44); MEAN CORPUSCULAR HEMOGLOBIN 29 pg (25-34); MEAN CORPUSCULAR HGB CONC 34 g/dL (32-36); MEAN CORPUSCULAR VOLUME 86 fL (80-99); MEAN PLATELET VOLUME 10.4 fL (9.0-12.2); MONOCYTES # (AUTO) 0.6 10^3/uL (0.0-1.0); MONOCYTES % (AUTO) 5 % (0-12); NEUTROPHILS # (AUTO) 8.1 10^3/uL (1.8-7.8); NEUTROPHILS % (AUTO) 77 % (42-75); PLATELET COUNT 247 10^3/uL (130-400); WHITE BLOOD COUNT 10.5 10^3/uL (4.3-11.0)
[2022-01-15 04:52] LABS: ALBUMIN 3.7 GM/DL (3.2-4.5); POTASSIUM 4.5 MMOL/L (3.6-5.0)
[2022-01-15 04:54] LABS: CALCIUM 8.3 MG/DL (8.5-10.1)
[2022-01-15 04:55] LABS: TOTAL PROTEIN 6.7 GM/DL (6.4-8.2)
[2022-01-15 04:57] LABS: BILIRUBIN,TOTAL 0.3 MG/DL (0.1-1.0)
[2022-01-15 04:58] LABS: CREATININE SERUM 1.05 MG/DL (0.60-1.30); PHOSPHORUS 1.8 MG/DL (2.3-4.7)
[2022-01-15 05:01] LABS: MAGNESIUM 1.6 MG/DL (1.6-2.4)
--- NOTE | 2022-01-15 05:49 | History & Physical-Hospitalist ---
History of Present Illness Date Seen 01/15/22 Time Seen by a Provider: 11:00 Attending Physician [facility] PCP Admitting Physician: Treva Albarran DO Attending Physician: Treva Albarran DO Referring Physician Date of Admission Jan 14, 2022 at 20:43 Home Medications & Allergies Home Medications Reviewed patient Home Medication Reconciliation performed by pharmacy medication reconciliations hydro plant technician and/or nursing. Patients Allergies have been reviewed. Allergies Allergies Coded Allergies No Known Drug Allergies (Unverified07/24/21) Past Rvgunke-Iasdls-Ixdlte Hx Patient Social History Tobacco Use?: Yes Smoking Status: Current Everyday Smoker Use of E-Cig and/or Vaping dev: Yes E-Cig or Vaping type used: Nicotine Substance use?: No Alcohol Use?: No Pt feels they are or have been: No Immunizations Up To Date Date of Influenza Vaccine: Dec 15, 2021 First/Initial COVID19 Vaccinat: FEBRUARY 2021 Second COVID19 Vaccination Angel: MAY 2021 Current Status Communicates: Verbally Primary Language: Faroese Preferred Spoken Language: Faroese Is interpretation needed?: No Past Medical History Diabetes, Insulin dep Physical Exam Physical Exam Vital Signs Vital Signs - First Documented 01/14/22 01/14/22 19:15 21:15 Temp 36.0 Pulse 95 Resp 18 B/P (MAP) 157/109 (125) Pulse Ox 100 O2 Delivery Room Air Capillary Refill : Less Than 3 Seconds Height, Weight, BMI Height: '" Weight: lbs. oz. kg; 19.97 BMI Method: Results Results/Procedures Labs Laboratory Tests 01/14/22 19:28 01/14/22 21:40 01/14/22 23:20 01/15/22 03:40 01/15/22 08:00 Patient resulted labs reviewed. TREVA ALBARRAN DO Jan 15, 2022 05:49
[2022-01-15] MEDS ORDERED: POTASSIUM CL 10MEQ/50ML IVPB 50 ML IV SCH (06:00)
[2022-01-15] MEDS ORDERED: KCL 20 MEQ TAB (K-DUR) PO SCH (06:00)
[2022-01-15] MEDS ORDERED: MAGNESIUM 1 GM/100 ML IVPB 100 ML IV SCH (06:00)
[2022-01-15] MEDS: MAGNESIUM 1 GM/100 ML IVPB 100 ML IV SCH ×2 (06:39→07:34)
[2022-01-15 08:19] LABS: POTASSIUM 4.4 MMOL/L (3.6-5.0)
[2022-01-15 08:21] LABS: CALCIUM 8.1 MG/DL (8.5-10.1)
[2022-01-15 08:25] LABS: CREATININE SERUM 0.96 MG/DL (0.60-1.30)
[2022-01-15] MEDS ORDERED: SENNOSIDES 8.6 MG (SENOKOT) TAB PO SCH (09:00)
[2022-01-15] MEDS ORDERED: DOCUSATE SODIUM 100 MG (COLACE) CAP PO SCH (09:00)
[2022-01-15] MEDS ORDERED: INSU100C3 SQ (11:30)
[2022-01-15] MEDS ORDERED: INSU100V6 SQ (11:30)
--- NOTE | 2022-01-15 11:30 | Short Stay Summary-Hospitalist ---
History of Present Illness HPI/Chief Complaint Chief complaint: DKA HPI: This is a 51-year-old male who was in the [facility] and refused insulin for 4 days and presented with DKA. Currently he is doing very well his anion gap is normal and he is doing well enough to go home. Source: patient, old records Exam Limitations: no limitations Date Seen 01/15/22 Time Seen by a Provider: 11:00 Attending Physician [facility] PCP Admitting Physician: Treva Albarran DO Attending Physician: Treva Albarran DO Referring Physician Date of Admission Jan 14, 2022 at 20:43 Home Medications & Allergies Home Medications Reviewed patient Home Medication Reconciliation performed by pharmacy medication reconciliations solar fabrication technician and/or nursing. Patients Allergies have been reviewed. Allergies Allergies Coded Allergies No Known Drug Allergies (Unverified07/24/21) Past Btqiuwr-Ewtvtm-Ezegid Hx Patient Social History Marrital Status: single Employed/Student: employed Tobacco Use?: Yes Smoking Status: Current Everyday Smoker Use of E-Cig and/or Vaping dev: Yes E-Cig or Vaping type used: Nicotine Substance use?: No Alcohol Use?: No Pt feels they are or have been: No Immunizations Up To Date Date of Influenza Vaccine: Dec 15, 2021 First/Initial COVID19 Vaccinat: FEBRUARY 2021 Second COVID19 Vaccination Angel: MAY 2021 Current Status Communicates: Verbally Primary Language: Liberian Preferred Spoken Language: Liberian Is interpretation needed?: No Past Medical History Diabetes, Insulin dep Review of Systems Constitutional: see HPI Physical Exam Physical Exam Vital Signs Vital Signs - First Documented 01/14/22 01/14/22 19:15 21:15 Temp 36.0 Pulse 95 Resp 18 B/P (MAP) 157/109 (125) Pulse Ox 100 O2 Delivery Room Air Capillary Refill : Less Than 3 Seconds Height, Weight, BMI Height: '" Weight: lbs. oz. kg; 19.97 BMI Method: General Appearance: No Apparent Distress, Chronically ill, Other (dehydrated) Eyes: Bilateral Eye Normal Inspection, Bilateral Eye PERRL HEENT: PERRL/EOMI, Normal ENT Inspection Neck: Full Range of Motion, Normal Inspection Respiratory: Chest Non Tender, Lungs Clear, Normal Breath Sounds, No Accessory Muscle Use, No Respiratory Distress Cardiovascular: Regular Rate, Rhythm, Normal Peripheral Pulses Gastrointestinal: Normal Bowel Sounds, Soft, Tenderness (diffuse) Back: Normal Inspection, No Vertebral Tenderness Extremity: Normal Capillary Refill Neurologic/Psychiatric: Alert, Oriented x3, No Motor/Sensory Deficits, Normal Mood/Affect, financial reporting director II-XII Norm as Tested Skin: Normal Color, Warm/Dry Lymphatic: No Adenopathy Results Results/Procedures Labs Laboratory Tests 01/14/22 19:28 01/14/22 21:40 01/14/22 23:20 01/15/22 03:40 01/15/22 08:00 01/15/22 12:07 Patient resulted labs reviewed. Short Stay Diagnosis Discharge Diagnosis-Short Stay Admission Diagnosis DKA Final Discharge Diagnosis DKA Conclusion Plan Discharge home TREVA ALBARRAN DO Jan 15, 2022 11:30
[2022-01-15] MEDS ORDERED: [UNRECOGNIZED DRUG - CODE] MC (12:22)
[2022-01-15 12:24] LABS: POTASSIUM 3.9 MMOL/L (3.6-5.0)
[2022-01-15 12:25] LABS: CALCIUM 8.3 MG/DL (8.5-10.1)
[2022-01-15 12:29] LABS: CREATININE SERUM 0.83 MG/DL (0.60-1.30)
== END 2022-01-15 14:25 | disposition home or self-care (01) | DRG 639 ==
LOC: EDUNIT# 19:03 → ER 19:05 → ICU 20:43
PROVIDERS: ADMIT Internal Medicine; ATTEND Internal Medicine
DX: E10.10 Type 1 diabetes mellitus with ketoacidosis without coma (principal); F17.210 Nicotine dependence, cigarettes, uncomplicated; F19.10 Other psychoactive substance abuse, uncomplicated
CPT/HCPCS: 36415; 36600; 80048; 80053; 81000; 82010; 82805; 82947; 83735; 84100; 85007; 85025; 85027; 87081; 99291